=== PATIENT | female | born 1940 | race Caucasian/White ===

== ENCOUNTER 2018-02-01 08:11 | Outpatient (REF) | payer MEDICARE, BC, SELFPAY ==
[2018-02-01 22:21] LABS: ALT 16 U/L (12-78); AST 20 U/L (15-37); Albumin 3.8 g/dL (3.4-5.0); Alkaline Phosphatase 75 U/L (46-116); Anion Gap 8.1 mmol/L (3-11); BUN 28 mg/dL (7-18); Bilirubin, Total 0.7 mg/dL (0.2-1.0); CO2 30.9 mmol/L (21.0-32.0); CREATININE 1.24 mg/dL (0.55-1.02); Calcium 9.3 mg/dL (8.5-10.1); Chloride 103 mmol/L (98-107); Cholesterol 157 mg/dL (50-200); Estimated GFR 41.73 (mL/min/1.73m2); Glucose 99 mg/dL (70-100); HDL Cholesterol 61 mg/dL (40-60); LDL CHOLESTEROL 74 mg/dL (<100); Sodium 142 mmol/L (136-145); Total Protein 6.9 g/dL (6.4-8.2); Triglyceride 109 mg/dL (30-150)
== END 2018-02-01 08:31 ==
LOC: NCHCN 08:11
PROVIDERS: Visit Provider Family Medicine
DX: I10 Essential (primary) hypertension (principal)
CPT/HCPCS: 80053; 80061; 83721

== ENCOUNTER 2018-05-22 09:51 | Outpatient (REF) | payer MEDICARE, BC, SELFPAY ==
[2018-05-22 21:45] LABS: BUN 29 mg/dL (7-18); CREATININE 1.11 mg/dL (0.55-1.02); Chloride 105 mmol/L (98-107); Estimated GFR 47.42 (mL/min/1.73m2); Glucose 103 mg/dL (70-100); Potassium 3.9 mmol/L (3.5-5.1); Sodium 144 mmol/L (136-145)
== END 2018-05-22 10:11 ==
LOC: NCHCN 09:51
PROVIDERS: Visit Provider Family Medicine
DX: N18.9 Chronic kidney disease, unspecified (principal); I10 Essential (primary) hypertension
CPT/HCPCS: 80048

== ENCOUNTER 2019-02-14 15:40 | Outpatient (REF) | payer MEDICARE, BC, SELFPAY ==
[2019-02-14 21:38] LABS: ALT 15 U/L (14-59); AST 16 U/L (15-37); Albumin 3.7 g/dL (3.4-5.0); Alkaline Phosphatase 86 U/L (46-116); Anion Gap 8.2 mmol/L (3-11); BUN 37 mg/dL (7-18); Bilirubin, Total 0.4 mg/dL (0.2-1.0); CO2 28.8 mmol/L (21.0-32.0); CREATININE 1.25 mg/dL (0.55-1.02); Calcium 9.2 mg/dL (8.5-10.1); Chloride 106 mmol/L (98-107); Estimated GFR 41.24 (mL/min/1.73m2); Glucose 88 mg/dL (70-100); Sodium 143 mmol/L (136-145); Total Protein 6.8 g/dL (6.4-8.2)
== END 2019-02-14 16:00 ==
LOC: NCHCN 15:40
PROVIDERS: Visit Provider Nurse Practitioner Family
DX: E78.5 Hyperlipidemia, unspecified (principal); I10 Essential (primary) hypertension; N18.9 Chronic kidney disease, unspecified
CPT/HCPCS: 80053

== ENCOUNTER 2019-03-02 10:15 | Outpatient (REF) | payer MEDICARE, BC, SELFPAY ==
[2019-03-02 21:05] LABS: CREATININE 1.25 mg/dL (0.55-1.02); Estimated GFR 41.24 (mL/min/1.73m2)
== END 2019-03-02 10:35 ==
LOC: NCHCN 10:15
PROVIDERS: PCP Nurse Practitioner Family; Visit Provider Nurse Practitioner Family
DX: I10 Essential (primary) hypertension (principal); N18.9 Chronic kidney disease, unspecified
CPT/HCPCS: 82565

== ENCOUNTER 2019-10-05 11:34 | Outpatient (REF) | payer MEDICARE, BC, SELFPAY ==
[2019-10-05 21:11] LABS: Anion Gap 5.7 mmol/L (3-11); BUN 28 mg/dL (7-18); CO2 31.3 mmol/L (21.0-32.0); CREATININE 1.29 mg/dL (0.55-1.02); Calcium 9.3 mg/dL (8.5-10.1); Chloride 103 mmol/L (98-107); Estimated GFR 39.76 (mL/min/1.73m2); Glucose 103 mg/dL (74-106); Potassium 3.9 mmol/L (3.5-5.1); Sodium 140 mmol/L (136-145)
[2019-10-05 21:28] LABS: Hemoglobin A1C 5.8 % (3.8-5.6)
== END 2019-10-05 11:54 ==
LOC: NCHCN 11:34
PROVIDERS: PCP Nurse Practitioner Family; Visit Provider Nurse Practitioner Family
DX: I10 Essential (primary) hypertension (principal); R73.9 Hyperglycemia, unspecified
CPT/HCPCS: 80048; 83036

== ENCOUNTER 2019-10-17 14:21 | Outpatient (REF) | payer MEDICARE, BC, SELFPAY ==
[2019-10-17 21:52] LABS: COMMENT (LAB VIEW ONLY) 44.94 mg/dL
== END 2019-10-17 14:41 ==
LOC: NCHCN 14:21
PROVIDERS: PCP Nurse Practitioner Family; Visit Provider Nurse Practitioner Family
DX: I10 Essential (primary) hypertension (principal); N18.9 Chronic kidney disease, unspecified
CPT/HCPCS: 82043; 82570

== ENCOUNTER 2020-08-29 20:24 | Outpatient (REF) | payer MEDICARE, BC, SELFPAY ==
[2020-08-29 18:50] LABS: HCT 43.5 % (36.0-46.0); HGB 14.2 g/dL (11.2-15.7); MCHC 32.6 % (32.0-36.0); MCV 91.8 fL (80-95); MPV 11.4 fL (8.0-11.0); Platelet Count 231 10^3/uL (130-400); RBC 4.74 10^6/uL (3.93-5.22); RDW 12.5 % (11.7-14.6); RDW-SD 42.3 fL; WBC 8.91 10^3/uL (4.4-10.8)
== END 2020-08-29 20:25 | disposition home or self-care (01) ==
LOC: NCHCN 20:24
PROVIDERS: PCP Nurse Practitioner Family; Visit Provider Nurse Practitioner Family
DX: R73.9 Hyperglycemia, unspecified (principal); E78.5 Hyperlipidemia, unspecified; I10 Essential (primary) hypertension; N18.9 Chronic kidney disease, unspecified
CPT/HCPCS: 85027; 83036

== ENCOUNTER 2020-09-16 15:01 | Outpatient (REF) | payer MEDICARE, BC, SELFPAY ==
[2020-09-16 21:25] LABS: Anion Gap 8.9 mmol/L (3-11); BUN 34 mg/dL (7-18); CO2 29.1 mmol/L (21.0-32.0); CREATININE 1.2 mg/dL (0.55-1.02); Calcium 9.6 mg/dL (8.5-10.1); Chloride 104 mmol/L (98-107); Estimated GFR 43.12 (mL/min/1.73m2); Glucose 137 mg/dL (74-106); Potassium 3.9 mmol/L (3.5-5.1); Sodium 142 mmol/L (136-145)
[2020-09-16 22:01] LABS: PROTEIN 13.3 mg/dL
== END 2020-09-16 15:02 | disposition home or self-care (01) ==
LOC: NCHCN 15:01
PROVIDERS: PCP Nurse Practitioner Family; Visit Provider Nurse Practitioner Family
DX: I10 Essential (primary) hypertension (principal); R73.9 Hyperglycemia, unspecified
CPT/HCPCS: 80048; 82565; 84156

== ENCOUNTER 2020-10-30 16:53 | Outpatient (REF) | payer MEDICARE, BC, SELFPAY ==
[2020-10-30 20:19] LABS: HCT 40.1 % (36.0-46.0); HGB 12.8 g/dL (11.2-15.7); MCH 30.3 pg (27.0-33.0); MCHC 31.9 % (32.0-36.0); MPV 11.3 fL (8.0-11.0); Platelet Count 213 10^3/uL (130-400); RBC 4.22 10^6/uL (3.93-5.22); RDW 14.1 % (11.7-14.6); RDW-SD 49.4 fL; WBC 7.19 10^3/uL (4.4-10.8)
== END 2020-10-30 16:54 | disposition home or self-care (01) ==
LOC: NCHCN 16:53
PROVIDERS: PCP Nurse Practitioner Family; Visit Provider Internal Medicine Hematology & Oncology
DX: D69.3 Immune thrombocytopenic purpura (principal)
CPT/HCPCS: 85027

== ENCOUNTER 2021-01-16 13:29 | Outpatient (REF) | payer MEDICARE, BC, SELFPAY ==
[2021-01-16 14:05] LABS: HCT 42.6 % (36.0-46.0); HGB 13.5 g/dL (11.2-15.7); MCH 30.6 pg (27.0-33.0); MCHC 31.7 % (32.0-36.0); MCV 96.6 fL (80-95); MPV 11.2 fL (8.0-11.0); Platelet Count 244 10^3/uL (130-400); RBC 4.41 10^6/uL (3.93-5.22); RDW 12.9 % (11.7-14.6); RDW-SD 46.4 fL; WBC 6.99 10^3/uL (4.4-10.8)
[2021-01-16 14:14] LABS: Anion Gap 7.9 mmol/L (3-11); BUN 24 mg/dL (7-18); CO2 28.1 mmol/L (21.0-32.0); CREATININE 0.9 mg/dL (0.55-1.02); Calcium 9.4 mg/dL (8.5-10.1); Chloride 106 mmol/L (98-107); Glucose 109 mg/dL (74-106); Potassium 4.5 mmol/L (3.5-5.1); Sodium 142 mmol/L (136-145)
[2021-01-16 14:20] LABS: Hemoglobin A1C 5.8 % (<5.7)
[2021-01-16 16:24] LABS: COMMENT (LAB VIEW ONLY) 116.76 mg/dL; Microalb ug/mg Crea 6.3 ug/mg Cr
[2021-01-16 16:41] LABS: ALT 19 U/L (14-59); AST 23 U/L (15-37); Albumin 3.7 g/dL (3.4-5.0); Alkaline Phosphatase 95 U/L (46-116); Bilirubin, Total 0.6 mg/dL (0.2-1.0); Total Protein 6.8 g/dL (6.4-8.2)
== END 2021-01-16 13:30 | disposition home or self-care (01) ==
LOC: NCHCN 13:29
PROVIDERS: PCP Nurse Practitioner Family; Visit Provider Nurse Practitioner Family
DX: R73.03 Prediabetes (principal); I10 Essential (primary) hypertension; E78.5 Hyperlipidemia, unspecified
CPT/HCPCS: 80048; 80053; 85027; 82043; 82570; 83036

== ENCOUNTER 2021-07-16 19:11 | Outpatient (REF) | payer MEDICARE, SELFPAY ==
[2021-07-16 15:44] LABS: HCT 43.6 % (36.0-46.0); HGB 13.9 g/dL (11.2-15.7); MCH 30.8 pg (27.0-33.0); MCHC 31.9 % (32.0-36.0); MCV 96.7 fL (80-95); MPV 11.9 fL (8.0-11.0); Platelet Count 185 10^3/uL (130-400); RBC 4.51 10^6/uL (3.93-5.22); RDW 12.9 % (11.7-14.6); RDW-SD 46.6 fL; WBC 6.27 10^3/uL (4.4-10.8)
== END 2021-07-16 19:12 | disposition home or self-care (01) ==
LOC: LBN 19:11
PROVIDERS: PCP Nurse Practitioner Family; Visit Provider Internal Medicine Hematology & Oncology
DX: D69.3 Immune thrombocytopenic purpura (principal)
CPT/HCPCS: 85027

== ENCOUNTER 2021-10-14 15:11 | Outpatient (REF) | payer MEDICARE, SELFPAY ==
[2021-10-14 16:45] LABS: Abs Immature Grans 0.01 10^3/uL (0.0-0.06); Absolute Basophil Count 0.04 10^3/uL (0.0-0.2); Absolute Eosinophil Count 0.07 10^3/uL (0.0-0.7); Absolute Lymphocyte Count 1.55 10^3/uL (1.2-3.4); Absolute Monocyte Count 0.49 10^3/uL (0.1-0.8); Absolute Neutrophil Count 4.09 10^3/uL (1.2-6.7); Basophils % 0.6; Eosinophils % 1.1; HCT 46.5 % (36.0-46.0); HGB 15.4 g/dL (11.2-15.7); Immature Grans % 0.2; Lymphocytes % 24.8; MCH 31.7 pg (27.0-33.0); MCHC 33.1 % (32.0-36.0); MCV 96 fL (80-95); MPV 12.5 fL (8.0-11.0); Monocytes % 7.8; Neutrophils % 65.5; Platelet Count 176 10^3/uL (130-400); RBC 4.86 10^6/uL (3.93-5.22); RDW 12.7 % (11.7-14.6); RDW-SD 45.1 fL; WBC 6.25 10^3/uL (4.4-10.8)
== END 2021-10-14 15:12 | disposition home or self-care (01) ==
LOC: LBN 15:11
PROVIDERS: PCP Nurse Practitioner Family; Visit Provider Internal Medicine Hematology & Oncology
DX: D69.3 Immune thrombocytopenic purpura (principal)
CPT/HCPCS: 85025

== ENCOUNTER 2022-01-05 13:38 | Outpatient (REF) | payer MEDICARE, SELFPAY ==
[2022-01-05 16:26] LABS: HCT 41.6 % (36.0-46.0); HGB 13.2 g/dL (11.2-15.7); MCH 30.9 pg (27.0-33.0); MCHC 31.7 % (32.0-36.0); MCV 97 fL (80-95); MPV 12.5 fL (8.0-11.0); Platelet Count 171 10^3/uL (130-400); RBC 4.27 10^6/uL (3.93-5.22); RDW 12.9 % (11.7-14.6); RDW-SD 46.2 fL; WBC 6.37 10^3/uL (4.4-10.8)
[2022-01-05 16:41] LABS: ALT 13 U/L (14-59); AST 28 U/L (15-37); Albumin 3.7 g/dL (3.4-5.0); Alkaline Phosphatase 77 U/L (46-116); Anion Gap 7.6 mmol/L (3-11); BUN 25 mg/dL (7-18); Bilirubin, Total 0.6 mg/dL (0.2-1.0); CO2 26.4 mmol/L (21.0-32.0); CREATININE 1.1 mg/dL (0.55-1.02); Calcium 9.1 mg/dL (8.5-10.1); Chloride 106 mmol/L (98-107); Estimated GFR 50.17 (mL/min/1.73m2); Glucose 113 mg/dL (74-106); Potassium 4.4 mmol/L (3.5-5.1); Sodium 140 mmol/L (136-145); Total Protein 6.9 g/dL (6.4-8.2)
[2022-01-05 17:01] LABS: Hemoglobin A1C 5.8 % (<5.7)
== END 2022-01-05 13:39 | disposition home or self-care (01) ==
LOC: NCHCN 13:38
PROVIDERS: PCP Nurse Practitioner Family; Visit Provider Nurse Practitioner Family
DX: R73.03 Prediabetes (principal); I10 Essential (primary) hypertension; E78.5 Hyperlipidemia, unspecified; D69.3 Immune thrombocytopenic purpura
CPT/HCPCS: 80053; 85027; 83036

== ENCOUNTER 2022-07-12 23:24 | Outpatient (REF) | payer MEDICARE, SELFPAY ==
[2022-07-12 20:49] LABS: HGB 15.7 g/dL (11.2-15.7); MCH 31.5 pg (27.0-33.0); MCHC 32.7 % (32.0-36.0); MCV 96 fL (80-95); MPV 12.1 fL (8.0-11.0); Platelet Count 195 10^3/uL (130-400); RBC 4.99 10^6/uL (3.93-5.22); RDW 12.8 % (11.7-14.6); RDW-SD 45.8 fL; WBC 7.56 10^3/uL (4.4-10.8)
[2022-07-12 20:58] LABS: Anion Gap 8.8 mmol/L (3-11); BUN 29 mg/dL (7-18); CO2 28.2 mmol/L (21.0-32.0); CREATININE 1.2 mg/dL (0.55-1.02); Calcium 9.8 mg/dL (8.5-10.1); Calculated LDL 81 mg/dL (<100); Chloride 107 mmol/L (98-107); Cholesterol 170 mg/dL (<200); Estimated GFR 44.91 (mL/min/1.73m2); Glucose 112 mg/dL (74-106); HDL Cholesterol 75 mg/dL (40-60); Potassium 4.3 mmol/L (3.5-5.1); Sodium 144 mmol/L (136-145); Triglyceride 72 mg/dL (<150)
[2022-07-12 21:04] LABS: Hemoglobin A1C 5.7 % (<5.7)
== END 2022-07-12 23:25 | disposition home or self-care (01) ==
LOC: NCHCN 23:24
PROVIDERS: PCP Nurse Practitioner Family; Visit Provider Nurse Practitioner Family
DX: I10 Essential (primary) hypertension (principal); E78.5 Hyperlipidemia, unspecified; R73.03 Prediabetes; D69.3 Immune thrombocytopenic purpura; N18.9 Chronic kidney disease, unspecified
CPT/HCPCS: 80048; 80061; 85027; 83036

== ENCOUNTER 2023-07-04 13:13 | Outpatient (REF) | payer MEDICARE, SELFPAY ==
[2023-07-04 14:53] LABS: HGB 14.2 g/dL (11.2-15.7); MCH 31.1 pg (27.0-33.0); MCHC 31.6 % (32.0-36.0); MCV 99 fL (80-95); MPV 12.1 fL (8.0-11.0); Platelet Count 184 10^3/uL (130-400); RBC 4.57 10^6/uL (3.93-5.22); RDW 12.8 % (11.7-14.6); RDW-SD 46.2 fL; WBC 5.88 10^3/uL (4.4-10.8)
[2023-07-04 15:10] LABS: Anion Gap 8.1 mmol/L (3-11); BUN 34 mg/dL (7-18); CO2 26.9 mmol/L (21.0-32.0); Calcium 9.1 mg/dL (8.5-10.1); Chloride 108 mmol/L (98-107); Estimated GFR 55.55 (mL/min/1.73m2); Glucose 115 mg/dL (74-106); Potassium 4.6 mmol/L (3.5-5.1); Sodium 143 mmol/L (136-145)
[2023-07-04 15:52] LABS: Hemoglobin A1C 5.9 % (<5.7)
== END 2023-07-04 13:14 | disposition home or self-care (01) ==
LOC: NCHCN 13:13
PROVIDERS: PCP Nurse Practitioner Family; Visit Provider Nurse Practitioner Family
DX: R73.03 Prediabetes (principal); N18.9 Chronic kidney disease, unspecified
CPT/HCPCS: 80048; 85027; 83036

== ENCOUNTER 2024-02-09 15:53 | Outpatient (REF) | payer MEDICARE, SELFPAY ==
[2024-02-09 22:30] LABS: Anion Gap 4.5 mmol/L (3-11); BUN 33 mg/dL (7-18); CO2 27.5 mmol/L (21.0-32.0); CREATININE 1.3 mg/dL (0.55-1.02); Calcium 9.4 mg/dL (8.5-10.1); Chloride 105 mmol/L (98-107); Glucose 133 mg/dL (74-106); Potassium 4.5 mmol/L (3.5-5.1); Sodium 137 mmol/L (136-145)
== END 2024-02-09 15:54 | disposition home or self-care (01) ==
LOC: NCHCN 15:53
PROVIDERS: PCP Nurse Practitioner Family; Visit Provider Nurse Practitioner Family
DX: I10 Essential (primary) hypertension (principal)
CPT/HCPCS: 80048

== ENCOUNTER 2024-07-04 09:35 | Outpatient (REF) | payer MEDICARE, SELFPAY ==
[2024-07-04 14:43] LABS: Abs Immature Grans 0.02 10^3/uL (0.0-0.06); Absolute Basophil Count 0.04 10^3/uL (0.0-0.2); Absolute Eosinophil Count 0.12 10^3/uL (0.0-0.7); Absolute Lymphocyte Count 1.72 10^3/uL (1.2-3.4); Absolute Monocyte Count 0.58 10^3/uL (0.1-0.8); Basophils % 0.5 %; Eosinophils % 1.6 %; HCT 45.2 % (36.0-46.0); HGB 14.4 g/dL (11.2-15.7); Immature Grans % 0.3 %; Lymphocytes % 23.6 %; MCH 31.3 pg (27.0-33.0); MCHC 31.9 % (32.0-36.0); MCV 98 fL (80-95); MPV 11.6 fL (8.0-11.0); Platelet Count 180 10^3/uL (130-400); RDW 12.7 % (11.7-14.6); RDW-SD 45.9 fL; WBC 7.28 10^3/uL (4.4-10.8)
[2024-07-04 14:57] LABS: Anion Gap 11.8 mmol/L (3-11); BUN 28 mg/dL (7-18); CO2 27.2 mmol/L (21.0-32.0); Calcium 9.3 mg/dL (8.5-10.1); Calculated LDL 68 mg/dL (<100); Chloride 106 mmol/L (98-107); Cholesterol 152 mg/dL (<200); Estimated GFR 55.21 (mL/min/1.73m2); Glucose 99 mg/dL (74-106); HDL Cholesterol 71 mg/dL (>or=50); Potassium 4.2 mmol/L (3.5-5.1); Sodium 145 mmol/L (136-145); Triglyceride 69 mg/dL (<150)
[2024-07-04 15:34] LABS: Hemoglobin A1C 5.8 % (<5.7)
== END 2024-07-04 09:36 | disposition home or self-care (01) ==
LOC: NCHCN 09:35
PROVIDERS: PCP Nurse Practitioner Family; Visit Provider Nurse Practitioner Family
DX: E78.5 Hyperlipidemia, unspecified (principal); R73.03 Prediabetes
CPT/HCPCS: 80048; 80061; 83036; 85025